=== PATIENT | male | born 1940 | race Caucasian/White ===

== ENCOUNTER → 2016-12-09 | Outpatient (CLI) | payer MEDICARE, BC | LOC: OD 08:56 | PROVIDERS: ATTEND Internal Medicine Cardiovascular Disease | DX: E03.9 Hypothyroidism, unspecified (principal) | CPT/HCPCS: 36415; 84443 ==

== ENCOUNTER 2019-09-06 16:54 | Observation (INO) | payer MEDICARE, BC ==
--- NOTE | 2019-09-06 17:05 | ER Document Report ---
ED General - General Chief Complaint: Chest Pain Stated Complaint: CHEST PAIN Time Seen by Provider: 09/06/19 17:04 Primary Care Provider: RANJAN PRICE MD [EMERITUS] - Follow up as needed Mode of Arrival: Ambulatory Information source: Patient TRAVEL OUTSIDE OF THE [place] IN LAST 30 DAYS: No - HPI Onset: Just prior to arrival - about 30 min prior to arrival Onset/Duration: Sudden Quality of pain: Pressure Severity: Moderate Pain Level: 3 Associated symptoms: None Exacerbated by: Denies Relieved by: Denies Similar symptoms previously: Yes - when he had a heart attack 40 years ago Recently seen / treated by doctor: No Notes: 79 year old male with history of a prior VT 40 years ago, HTN, HLD here in the ER for chest pain/pressure which started 30min prior to ER arrival. The patient says the pain radiates slightly into his left arm and left jaw. The patient says the pain started while watching TV. The patient denies nausea, vomiting, sweating, shortness of breath. The patient never had an intervention with his last VT which was 40 years ago. - Related Data Allergies/Adverse Reactions: No Known Allergies Allergy (Unverified 09/06/19 17:24) Past Medical History - General Information source: Patient - Social History Smoking Status: Former Smoker Frequency of alcohol use: Occasional Drug Abuse: None Lives with: Spouse/Significant other Family History: Reviewed & Not Pertinent - Past Medical History Cardiac Medical History: Reports: Hx Heart Attack, Hx Hypercholesterolemia, Hx Hypertension Review of Systems - Review of Systems Constitutional: No symptoms reported EENT: No symptoms reported Cardiovascular: Chest pain Respiratory: No symptoms reported Gastrointestinal: No symptoms reported Genitourinary: No symptoms reported Male Genitourinary: No symptoms reported Musculoskeletal: No symptoms reported Skin: No symptoms reported Hematologic/Lymphatic: No symptoms reported Neurological/Psychological: No symptoms reported -: Yes All other systems reviewed and negative Physical Exam - Vital signs Vitals: Temp Pulse Resp BP Pulse Ox 97.7 F 63 18 174/70 H 98 09/06/19 17:02 09/06/19 17:02 09/06/19 17:02 09/06/19 17:02 09/06/19 17:02 - Notes Notes: GENERAL: Well-appearing, well-nourished and in no acute distress. HEAD: Atraumatic, normocephalic. EYES: Pupils equal round and reactive to light, extraocular movements intact, sclera anicteric, conjunctiva are normal. ENT: External ears normal in appearance, nares patent, oropharynx clear without exudates. Moist mucous membranes. NECK: Normal range of motion, supple without lymphadenopathy or JVD. LUNGS: Breath sounds clear to auscultation bilaterally and equal. No wheezes rales or rhonchi. HEART: Regular rate and rhythm without murmurs, rubs or gallops. ABDOMEN: Soft, nontender, normoactive bowel sounds. No guarding, no rebound. No masses appreciated. EXTREMITIES: Normal range of motion, no pitting or edema. No clubbing or cyanosis. NEUROLOGICAL: Cranial nerves II through XII grossly intact. Normal speech, normal gait. PSYCH: Normal mood, normal affect. SKIN: Warm, Dry, normal turgor, no rashes or lesions noted. Course - Re-evaluation Re-evalutation: 09/06/19 18:30 The patient had chest pain which started about 30 min prior to ER arrival. The patient's chest pain nearly completely subsided in the ER. According to the patient's Fur Cleaner Dr. Price, the patient had a stress test in 2018 which showed some possible areas of reversible ischemia. Dr. Price would therefore like the patient to be admitted for OBs. The patient's EKG is unremarkable here in the ER an dhis first Trop is completely negative. Will admit patient for OBs and cycle Troponins. Patient was given ASA and Nitro in the ER. 09/06/19 19:03 Dr. Price would like the patient admitted for OBs. Don Day of the Hospitalist team recommended repeating a Trop and then discussing the case with Dr. Price after since there are no inpatient Stress Tests currently due to COVID 19. Patient signed out to oncoming ER doctor at shift change. - Vital Signs Vital signs: Temp Pulse Resp BP Pulse Ox 97.7 F 63 18 180/120 H 98 09/06/19 17:02 09/06/19 17:02 09/06/19 17:07 09/06/19 17:06 09/06/19 17:02 - Laboratory Result Diagrams: 09/06/19 17:10 09/06/19 17:10 - Diagnostic Test Radiology reviewed: Image reviewed, Reports reviewed - EKG Interpretation by Me EKG shows normal: Sinus rhythm, [place], Intervals, QRS Complexes, ST-T Waves Rate: Normal Rhythm: NSR Discharge - Discharge Clinical Impression: Chest pain Qualifiers: Chest pain type: unspecified Qualified Code(s): R07.9 - Chest pain, unspecified Condition: Stable Disposition: OTHER Referrals: RANJAN PRICE MD [EMERITUS] - Follow up as needed
[2019-09-06] MEDS ORDERED: ASPIRIN 81 MG TABLET, CHEWABLE PO ONE (17:11)
[2019-09-06] MEDS: NITROGLYCERIN 0.4 MG/TAB 25 TAB/BOTTLE SL PRN ×2 (17:19→17:37)
--- NOTE | 2019-09-06 17:26 | RADIOLOGY REPORT (SQ) ---
EXAM DESCRIPTION: CHEST 2 VIEWS IMAGES COMPLETED DATE/TIME: 09/06/2019 5:18 pm REASON FOR STUDY: chest pain COMPARISON: None. EXAM PARAMETERS: NUMBER OF VIEWS: two views TECHNIQUE: Digital Frontal and Lateral radiographic views of the chest acquired. RADIATION DOSE: NA LIMITATIONS: none FINDINGS: LUNGS AND PLEURA: No opacities, masses or pneumothorax. No pleural effusion. MEDIASTINUM AND HILAR STRUCTURES: No masses or contour abnormalities. HEART AND VASCULAR STRUCTURES: Heart normal size. No evidence for failure. BONES: No acute findings. HARDWARE: None in the chest. OTHER: No other significant finding. IMPRESSION: NO ACUTE RADIOGRAPHIC FINDING IN THE CHEST. TECHNICAL DOCUMENTATION: JOB ID: [id number] 2010 [employer]- All Rights Reserved Reading location - IP/workstation name: [email or web address]
--- NOTE | 2019-09-06 17:32 | EKG REPORT ---
SEVERITY:- ABNORMAL ECG - SINUS RHYTHM EARLY PRECORDIAL TRANSITION TO V1, CONSIDER OLD TRUE POST PR. : Confirmed by: Jasson Montanez MD 06-Sep-2019 17:31:28
[2019-09-06 17:33] LABS: ABSOLUTE BASOPHILS # (AUTO) 0.1 10^3/uL (0.0-0.2); ABSOLUTE EOSINOPHILS # (AUTO) 0.2 10^3/uL (0.0-0.6); ABSOLUTE LYMPHOCYTES (AUTO) 1.9 10^3/uL (0.5-4.7); ABSOLUTE MONOCYTES (AUTO) 0.6 10^3/uL (0.1-1.4); ABSOLUTE NEUT (AUTO) 3.9 10^3/uL (1.7-8.2); EOSINOPHILS % (AUTO) 3.4 % (0-6); HEMATOCRIT 45.5 % (37.9-51.0); HEMOGLOBIN 15.7 g/dL (13.5-17.0); LYMPHOCYTES % (AUTO) 28.6 % (13-45); MEAN CORPUSCULAR HEMOGLOBIN 33.2 pg (27.0-33.4); MEAN CORPUSCULAR HGB CONC 34.4 g/dL (32.0-36.0); MEAN CORPUSCULAR VOLUME 97 fl (80-97); PLATELET COUNT 212 10^3/uL (150-450); RED BLOOD COUNT 4.72 10^6/uL (4.35-5.55); RED CELL DISTRIBUTION WIDTH 13.2 % (11.5-14.0); TOTAL CELLS COUNTED % (AUTO) 100 %; WHITE BLOOD COUNT 6.7 10^3/uL (4.0-10.5)
[2019-09-06 17:41] LABS: ALBUMIN 4.5 g/dL (3.5-5.0); ALKALINE PHOSPHATASE 94 U/L (38-126); ANION GAP 7 (5-19); ASPARTATE AMINO TRANSFERASE 53 U/L (17-59); BILIRUBIN,TOTAL 0.7 mg/dL (0.2-1.3); BLOOD UREA NITROGEN 18 mg/dL (7-20); CALCIUM 9.4 mg/dL (8.4-10.2); CARBON DIOXIDE 29 mmol/L (22-30); CHLORIDE 104 mmol/L (98-107); GLUCOSE 108 mg/dL (75-110); POTASSIUM 4.2 mmol/L (3.6-5.0); TOTAL PROTEIN 7.4 g/dL (6.3-8.2)
[2019-09-07] MEDS ORDERED: ONDANSETRON HCL INJ/PF 4 MG/2 ML SDV IV PRN (00:24)
[2019-09-07] MEDS ORDERED: MAGNESIUM HYDROXIDE SUSP 30 ML UDCUP PO PRN (00:24)
[2019-09-07] MEDS ORDERED: MAG HYDROX/AL HYDROX/SIMETH SUSP 30 ML UDCUP PO PRN (00:24)
[2019-09-07] MEDS ORDERED: MORPHINE SULFATE 10 MG/ML INJ IV PRN ×3 (00:41)
[2019-09-07] MEDS ORDERED: NITROGLYCERIN 0.4 MG/TAB 25 TAB/BOTTLE SL PRN (00:41)
[2019-09-07] MEDS ORDERED: ACETAMINOPHEN 325 MG TABLET PO PRN (00:41)
--- NOTE | 2019-09-07 02:11 | PDOC H&P ---
History of Present Illness Admission Date/PCP: 09/07/19 00:32 AURA COLEMAN MD Patient complains of: Chest pain History of Present Illness: EMILIA MARIE JR is a 79 year old male who presented emergency room with a 30-minute history of acute chest pain. He admits the sudden onset, while at rest, of constant moderate left anterior chest/substernal chest pressure with radiation to the left shoulder and upper arm as well as the left jaw. He denies other associated or accompanying signs and symptoms. He admits a prior similar episode with a myocardial infarction 40 years ago. He has not identified any aggravating or ameliorating factors for his chest pain. In the emergency room he was found to have an EKG which showed no evidence of acute coronary ischemia or injury and serial cardiac enzymes remain in the normal range. His chest pain resolved after receiving sublingual nitroglycerin x2 in the ER. At the insistence of Dr. Montanez, his equipment driver he was admitted to observation status for a Cardiolite stress test to be performed by Dr. Mcclellan who has been called by myself and informed of the stress test and has also been consulted for further evaluation. Past Medical History Cardiac Medical History: Reports: Coronary Artery Disease, Myocardial Infarction, Hyperlipidema, Hypertension Denies: Atrial Fibrillation, Congestive Heart Failure, DVT, Pulmonary Embolism Pulmonary Medical History: Denies: Asthma, Chronic Obstructive Pulmonary Disease (COPD) EENT Medical History: Denies: Cataracts, Ears - Hearing aids Neurological Medical History: Denies: Hemorrhagic CVA, Ischemic CVA, Seizures Endocrine Medical History: Denies: Diabetes Mellitus Type 1, Diabetes Mellitus Type 2, Hyperthyroidism, Hypothyroidism Renal/ Medical History: Denies: Chronic Kidney Disease, Nephrolithiasis Malignancy Medical History: Reports: None GI Medical History: Denies: Cirrhosis, Crohn's Disease, Hepatitis, Peptic Ulcer Disease, Ulcerative Colitis Musculoskeltal Medical History: Denies: Arthritis, Fibromyalgia Skin Medical History: Denies: Eczema, Psoriasis Psychiatric Medical History: Denies: Alcohol Dependency, Substance Abuse, Tobacco Dependency Traumatic Medical History: Reports: None Hematology: Denies: Anemia, Bleeding Tendencies Infectious Medical History: Reports: None Past Surgical History Past Surgical History: Reports: Cholecystectomy Social History Information Source: Patient Lives with: Spouse/Significant other Smoking Status: Former Smoker Electronic Cigarette use?: No Frequency of Alcohol Use: None Hx Recreational Drug Use: No Drugs: None Hx Prescription Drug Abuse: No - Advance Directive Resuscitation Status: Full Code Surrogate healthcare decision maker:: Zo Marie Family History Family History: CAD, Malignancy. denies: DM Parental Family History Reviewed: Yes Children Family History Reviewed: No Sibling(s) Family History Reviewed.: Yes Medication/Allergy Home Medications: Atorvastatin Calcium [Lipitor 80 mg Tablet] 80 mg PO QHS 09/06/19 Ezetimibe 10 mg PO DAILY 09/06/19 Metoprolol Tartrate [Lopressor 50 mg Tablet] 75 mg PO Q12 09/06/19 Telmisartan 80 mg PO DAILY 09/06/19 Allergies/Adverse Reactions: No Known Allergies Allergy (Unverified 09/06/19 17:24) Review of Systems Constitutional: ABSENT: chills, fever(s) Eyes: ABSENT: visual disturbances, other - Eye pain Ears: ABSENT: hearing changes, other - Ear pain Nose, Mouth, and Throat: ABSENT: headache(s), sore throat Cardiovascular: PRESENT: chest pain. ABSENT: dyspnea on exertion, edema, orthropnea, palpitations Respiratory: ABSENT: cough, dyspnea Gastrointestinal: ABSENT: abdominal pain, constipation, diarrhea, nausea, vomiting Musculoskeletal: ABSENT: back pain, joint swelling Integumentary: ABSENT: pruritus, rash Neurological: ABSENT: confusion, convulsions, focal weakness, memory loss, syncope Psychiatric: ABSENT: anxiety, depression Endocrine: ABSENT: cold intolerance, heat intolerance, polydipsia, polyphagia, polyuria Hematologic/Lymphatic: ABSENT: easy bleeding, easy bruising Allergic/Immunologic: ABSENT: seasonal rhinorrhea Physical Exam Vital Signs: Temp Pulse Resp BP Pulse Ox 97.7 F 63 20 181/78 H 98 09/06/19 17:02 09/06/19 17:02 09/07/19 00:01 09/07/19 00:00 09/07/19 00:01 Intake & Output 09/05/19 09/06/19 09/07/19 23:59 23:59 23:59 Weight 90.718 kg General appearance: PRESENT: no acute distress, cooperative Head exam: PRESENT: atraumatic, normocephalic Eye exam: PRESENT: conjunctiva pink. ABSENT: conjunctival injection, scleral icterus Ear exam: PRESENT: normal external ear exam. ABSENT: bleeding, drainage Mouth exam: PRESENT: dry mucosa, neck supple Neck exam: ABSENT: thyromegaly, tracheal deviation Respiratory exam: PRESENT: clear to auscultation shalom, symmetrical, unlabored Cardiovascular exam: PRESENT: RRR. ABSENT: clicks, gallop, rubs Pulses: PRESENT: normal radial pulses, normal dorsalis pedis pul Vascular exam: PRESENT: normal capillary refill. ABSENT: pallor GI/Abdominal exam: PRESENT: normal bowel sounds, soft. ABSENT: tenderness Rectal exam: PRESENT: deferred Extremities exam: ABSENT: joint swelling, pedal edema Musculoskeletal exam: ABSENT: deformity, dislocation Neurological exam: PRESENT: alert, oriented to person, oriented to place, oriented to time, oriented to situation, CN II-XII grossly intact. ABSENT: motor sensory deficit Psychiatric exam: PRESENT: appropriate affect, normal mood Skin exam: PRESENT: dry, intact, warm. ABSENT: jaundice, rash, urticaria Results Laboratory Results: 09/06/19 17:10 09/06/19 17:10 09/06/19 09/06/19 17:10 17:10 WBC 6.7 RBC 4.72 Hgb 15.7 Hct 45.5 MCV 97 MCH 33.2 MCHC 34.4 RDW 13.2 Plt Count 212 Seg Neutrophils % 58.0 Sodium 139.7 Potassium 4.2 Chloride 104 Carbon Dioxide 29 Anion Gap 7 BUN 18 Creatinine 0.94 Est GFR ( Amer) > 60 Glucose 108 Calcium 9.4 Total Bilirubin 0.7 AST 53 Alkaline Phosphatase 94 Total Protein 7.4 Albumin 4.5 09/06/19 09/06/19 17:10 21:52 Troponin I < 0.012 0.024 Impressions: Chest X-Ray 09/06/19 17:05 IMPRESSION: NO ACUTE RADIOGRAPHIC FINDING IN THE CHEST. Assessment and Plan - Diagnosis (1) Chest pain Qualifiers: Chest pain type: unspecified Qualified Code(s): R07.9 - Chest pain, unspecified Is this a current diagnosis for this admission?: Yes (2) Coronary artery disease Qualifiers: Coronary Disease-Associated Artery/Lesion type: [place] artery [place] vs. transplanted heart: [place] heart Associated angina: with unspecified angina Qualified Code(s): I25.119 - Atherosclerotic heart disease of [place] coronary artery with unspecified angina pectoris Is this a current diagnosis for this admission?: Yes (3) Hyperlipidemia Qualifiers: Hyperlipidemia type: unspecified Qualified Code(s): E78.5 - Hyperlipidemia, unspecified Is this a current diagnosis for this admission?: Yes (4) Hypertension Qualifiers: Hypertension type: essential hypertension Qualified Code(s): I10 - Essential (primary) hypertension Is this a current diagnosis for this admission?: Yes - Plan Summary Summary: The patient is admitted on observation status to the telemetry floor. He will have a Cardiolite cardiac stress test performed later this morning. Dr. Mcclellan will be consulting on the patient and monitoring the stress test. He will use morphine sulfate 2 to 4 mg IV every 2 hours as needed for chest pain not controlled by nitroglycerin. He will receive Ativan 1 mg IV every 4 hours as needed anxiety or restlessness. Serial cardiac enzymes will be completed. Patient will have his breakfast diet per stress test protocol. Patient's usual medications will be restarted as soon as he has completed his stress test and his medication list has been verified and reconciled. - Time Time Spent with patient: 15-24 minutes Medications reviewed and adjusted accordingly: Yes Anticipated discharge: Home Within: within 24 hours - Inpatient Certification Based on my medical assessment, after consideration of the patient's comorbidities, presenting symptoms, or acuity I expect that the services needed warrant INPATIENT care.: No I certify that my determination is in accordance with my understanding of Medicare's requirements for reasonable and necessary INPATIENT services [42 CFR 412.3e].: No Medical Necessity: Risk of Complication if Not Cared For in Hospital
[2019-09-07] MEDS: HEPARIN SOD (PORCINE) 5,000 UNIT/ML 1 ML VIAL SUBCUT SCH ×2 (05:39→13:27)
[2019-09-07 05:45] LABS: CREATINE KINASE MB 1.43 ng/mL (<4.55); TROPONIN I 0.035 ng/mL
--- NOTE | 2019-09-07 07:16 | EKG REPORT ---
SEVERITY:- ABNORMAL ECG - SINUS RHYTHM MULTIPLE VENTRICULAR PREMATURE COMPLEXES TALL R WAVE IN V2, CONSIDER RVH OR PMI * OLD LATER[place] : Confirmed by: Jasson Montanez MD 07-Sep-2019 07:15:46
--- NOTE | 2019-09-07 09:44 | PDOC CONSULTATION ---
Consultation Consult Date: 09/07/19 Attending physician:: GAVI RAMIREZ Provider Consulted: BERNICE LACKEY Consult reason:: Chest pain, unstable angina History of Present Illness Admission Date/PCP: 09/07/19 00:32 AURA COLEMAN MD Patient complains of: Chest pain History of Present Illness: EMILIA MARIE JR is a 79 year old male who presented emergency room with a 30-minute history of acute chest pain. He admits the sudden onset, while at rest, of constant moderate left anterior chest/substernal chest pressure with radiation to the left shoulder and upper arm as well as the left jaw. He denies other associated or accompanying signs and symptoms. He admits a prior similar episode with a myocardial infarction 40 years ago. He has not identified any aggravating or ameliorating factors for his chest pain. In the emergency room he was found to have an EKG which showed no evidence of acute coronary ischemia or injury and serial cardiac enzymes remain in the normal range. His chest pain resolved after receiving sublingual nitroglycerin x2 in the ER. At the insistence of Dr. Montanez, his forest logistics manager he was admitted to observation status for a Cardiolite stress test to be performed by Dr. Mcclellan who has been called by myself and informed of the stress test and has also been consulted for further evaluation. This note by the hospitalist was reviewed. This morning I have been covering for Dr. Mcclellan who kindly asked me to see this patient on his behalf. This history obtained by the hospitalist was reviewed and confirmed by the patient. Since admission he has not had recurrence of chest pain. This morning his troponin I jumped just a little bit. Stress test, pharmacologic with Lexiscan was completed. During the Lexiscan infusion, patient did complain of chest pain but there were no associated EKG changes. Past Medical History Cardiac Medical History: Reports: Coronary Artery Disease, Myocardial Infarction, Hyperlipidema, Hypertension Denies: Atrial Fibrillation, Congestive Heart Failure, DVT, Pulmonary Embolism Pulmonary Medical History: Denies: Asthma, Chronic Obstructive Pulmonary Disease (COPD) EENT Medical History: Denies: Cataracts, Ears - Hearing aids Neurological Medical History: Denies: Hemorrhagic CVA, Ischemic CVA, Seizures Endocrine Medical History: Denies: Diabetes Mellitus Type 1, Diabetes Mellitus Type 2, Hyperthyroidism, Hypothyroidism Renal/ Medical History: Denies: Chronic Kidney Disease, Nephrolithiasis Malignancy Medical History: Reports: None GI Medical History: Denies: Cirrhosis, Crohn's Disease, Hepatitis, Peptic Ulcer Disease, Ulc erative Colitis Musculoskeltal Medical History: Denies: Arthritis, Fibromyalgia Skin Medical History: Denies: Eczema, Psoriasis Psychiatric Medical History: Denies: Alcohol Dependency, Substance Abuse, Tobacco Dependency Traumatic Medical History: Reports: None Hematology: Denies: Anemia, Bleeding Tendencies Infectious Medical History: Reports: None Past Surgical History Past Surgical History: Reports: None, Cholecystectomy Social History Information Source: Patient Lives with: Spouse/Significant other Smoking Status: Former Smoker Electronic Cigarette use?: No Frequency of Alcohol Use: None Hx Recreational Drug Use: No Drugs: None Hx Prescription Drug Abuse: No - Advance Directive Resuscitation Status: Full Code Family History Family History: CAD, Malignancy. denies: DM Parental Family History Reviewed: Yes Children Family History Reviewed: Yes Sibling(s) Family History Reviewed.: Yes Medication/Allergy Home Medications: Atorvastatin Calcium [Lipitor 80 mg Tablet] 80 mg PO QHS 09/06/19 Ezetimibe 10 mg PO DAILY 09/06/19 Metoprolol Tartrate [Lopressor 50 mg Tablet] 75 mg PO Q12 09/06/19 Telmisartan 80 mg PO DAILY 09/06/19 Aspirin [Ecotrin 81 mg EC Tablet] 81 mg PO DAILY 09/07/19 Diltiazem HCl [Diltiazem 24Hr ER] 240 mg PO DAILY 09/07/19 Allergies/Adverse Reactions: No Known Allergies Allergy (Unverified 09/06/19 17:24) Review of Systems Constitutional: ABSENT: chills, fever(s), headache(s), weight gain, weight loss Eyes: ABSENT: visual disturbances Ears: ABSENT: hearing changes Cardiovascular: PRESENT: chest pain, dyspnea on exertion. ABSENT: edema, orthropnea, palpitations Respiratory: ABSENT: cough, hemoptysis Gastrointestinal: ABSENT: abdominal pain, constipation, diarrhea, hematemesis, hematochezia, nausea, vomiting Genitourinary: ABSENT: dysuria, hematuria Musculoskeletal: ABSENT: joint swelling Integumentary: ABSENT: rash, wounds Neurological: ABSENT: abnormal gait, abnormal speech, confusion, dizziness, focal weakness, syncope Psychiatric: ABSENT: anxiety, depression, homidical ideation, suicidal ideation Endocrine: ABSENT: cold intolerance, heat intolerance, polydipsia, polyuria Hematologic/Lymphatic: ABSENT: easy bleeding, easy bruising Physical Exam Vital Signs: Temp Pulse Resp BP Pulse Ox 98.0 F 81 18 165/80 H 98 09/07/19 02:08 09/07/19 02:08 09/07/19 02:08 09/07/19 02:08 09/07/19 02:08 Intake & Output 09/06/19 09/07/19 09/08/19 06:59 06:59 06:59 Weight 76.1 kg General appearance: PRESENT: no acute distress, well-developed, well-nourished Head exam: PRESENT: atraumatic, normocephalic Eye exam: PRESENT: conjunctiva pink, EOMI, PERRLA. ABSENT: scleral icterus Ear exam: PRESENT: normal external ear exam Mouth exam: PRESENT: moist, tongue midline Neck exam: ABSENT: carotid bruit, JVD, lymphadenopathy, thyromegaly Respiratory exam: PRESENT: clear to auscultation shalom. ABSENT: rales, rhonchi, wheezes Cardiovascular exam: PRESENT: RRR, +S1, +S2, systolic murmur - 2/6 ejection systolic murmur aortic area. ABSENT: diastolic murmur, rubs Pulses: PRESENT: normal dorsalis pedis pul Vascular exam: PRESENT: normal capillary refill GI/Abdominal exam: PRESENT: normal bowel sounds, soft. ABSENT: distended, guarding, mass, organolmegaly, rebound, tenderness Rectal exam: PRESENT: deferred Extremities exam: PRESENT: full ROM. ABSENT: calf tenderness, clubbing, pedal edema Neurological exam: PRESENT: alert, awake, oriented to person, oriented to place, oriented to time, oriented to situation, CN II-XII grossly intact. ABSENT: motor sensory deficit Psychiatric exam: PRESENT: appropriate affect, normal mood. ABSENT: homicidal ideation, suicidal ideation Skin exam: PRESENT: dry, intact, warm. ABSENT: cyanosis, rash Results Laboratory Results: 09/06/19 17:10 09/06/19 17:10 09/06/19 09/06/19 09/06/19 17:10 17:10 21:52 WBC 6.7 RBC 4.72 Hgb 15.7 Hct 45.5 MCV 97 MCH 33.2 MCHC 34.4 RDW 13.2 Plt Count 212 Seg Neutrophils % 58.0 Sodium 139.7 Potassium 4.2 Chloride 104 Carbon Dioxide 29 Anion Gap 7 BUN 18 Creatinine 0.94 Est GFR ( Amer) > 60 Glucose 108 Calcium 9.4 Magnesium 2.4 H Total Bilirubin 0.7 AST 53 Alkaline Phosphatase 94 Total Protein 7.4 Albumin 4.5 09/06/19 09/06/19 09/07/19 17:10 21:52 04:01 Creatine Kinase 64 CK-MB (CK-2) Troponin I < 0.012 0.024 09/07/19 04:01 Creatine Kinase CK-MB (CK-2) 1.43 Troponin I 0.035 EKG Comments: Twelve-lead EKG x2 reviewed. Shows sinus rhythm, no acute ST-T wave changes are noted. Impressions: Chest X-Ray 09/06/19 17:05 IMPRESSION: NO ACUTE RADIOGRAPHIC FINDING IN THE CHEST. Assessment & Plan - Diagnosis (1) Chest pain Qualifiers: Chest pain type: unspecified Qualified Code(s): R07.9 - Chest pain, unspecified Is this a current diagnosis for this admission?: Yes (2) Coronary artery disease Qualifiers: Coronary Disease-Associated Artery/Lesion type: [place] artery [place] vs. transplanted heart: [place] heart Associated angina: with unspecified angina Qualified Code(s): I25.119 - Atherosclerotic heart disease of [place] coronary artery with unspecified angina pectoris Is this a current diagnosis for this admission?: Yes (3) Hyperlipidemia Qualifiers: Hyperlipidemia type: unspecified Qualified Code(s): E78.5 - Hyperlipidemia, unspecified Is this a current diagnosis for this admission?: Yes (4) Hypertension Qualifiers: Hypertension type: essential hypertension Qualified Code(s): I10 - Essential (primary) hypertension Is this a current diagnosis for this admission?: Yes (5) Unstable angina Is this a current diagnosis for this admission?: Yes - Notes Notes: Patient was admitted with chest pain. He describes a good history consistent with unstable angina. Patient had slight bump in his troponin I but no significant EKG change. Due to history of previous MO, his age and risk factor, there is high probability that he has underlying CAD and current presentation is of unstable angina. Currently patient has stabilized. However will optimize his medical management. Recommend start patient on dual antiplatelet therapy with Plavix and aspirin. Recommend continuing Plavix at 75 mg daily for at least a month. Loading dose orders given today. At this point, will recommend continuing aggressive medical management. Have added Lipitor 20 mg p.o. nightly. Added beta-jayme to the regimen. Continue ZANE inhibitor/ARB at home dose. Escalate beta-jayme as needed. Blood pressure goal should be 140/90 or less. I have ordered a 2D echo for risk stratification. Hyperlipidemia: Continue with statin therapy. Started patient on statin therapy, Lipitor 20 mg p.o. nightly. Hypertension: Blood pressure is noted to be elevated. Added beta-jayme. Resume home antihypertensives. Unstable angina: Currently stable. Should patient has significant recurrence of chest pain, significant bump in troponin I or significant ischemia on nuclear stress testing may consider transfer to care transfer for heart catheterization. - Time Time Spent: 50 to 70 Minutes - More than 50% of the time spent coordinating care, discussing management plans with involved caregivers. Management plans discussed with involved personnels. Medical decision making was of moderate to high complexity, patient's has multiple comorbidities. Medications reviewed and adjusted accordingly: Yes
[2019-09-07] MEDS ORDERED: FAMOTIDINE 20 MG TABLET PO SCH (10:00)
[2019-09-07] MEDS ORDERED: METOPROLOL SUCCINATE 25 MG TAB.SR.24H PO SCH (10:00)
[2019-09-07] MEDS ORDERED: CLOPIDOGREL BISULFATE 300 MG TABLET PO ONE (10:30)
[2019-09-07] MEDS ORDERED: AMINOPHYLLINE INJ/PF 250 MG/10 ML SDV IV ONE (11:18)
[2019-09-07] MEDS ORDERED: REGADENOSON INJ 0.4 MG/5 ML DISP.SYRIN IV ONE (11:18)
[2019-09-07 11:24] LABS: CHOLESTEROL 94.18 mg/dL (0-200); TRIGLYCERIDES 53 mg/dL (<150)
[2019-09-07 11:35] LABS: DIRECT LDL 51 mg/dL (<100)
--- NOTE | 2019-09-07 12:24 | PDOC DISCHARGE SUMMARY ---
Impression - Admit/DC Date/PCP Admission Date/Primary Care Provider: 09/07/19 00:32 AURA COLEMAN MD Discharge Date: 09/07/19 - Discharge Diagnosis (1) Coronary artery disease Is this a current diagnosis for this admission?: Yes (2) Hyperlipidemia Is this a current diagnosis for this admission?: Yes (3) Hypertension Is this a current diagnosis for this admission?: Yes (4) Stable angina Is this a current diagnosis for this admission?: Yes - Assessment Summary: The patient is admitted on observation status to the telemetry floor. He will have a Cardiolite cardiac stress test performed later this morning. Dr. Mcclellan will be consulting on the patient and monitoring the stress test. He will use morphine sulfate 2 to 4 mg IV every 2 hours as needed for chest pain not controlled by nitroglycerin. He will receive Ativan 1 mg IV every 4 hours as needed anxiety or restlessness. Serial cardiac enzymes will be completed. Patient will have his breakfast diet per stress test protocol. Patient's usual medications will be restarted as soon as he has completed his stress test and his medication list has been verified and reconciled. - Additional Information Resuscitation Status: Full Code Referrals: AURA COLEMAN MD [Primary Care Provider] - Prescriptions: Nitroglycerin [Nitrostat 0.4 mg (1/150 Gr) Tabs 25/Bottle] 1 tab SL Q5MP PRN #1 bottle PRN Reason: For Chest Pain Clopidogrel Bisulfate [Plavix 75 mg Tablet] 75 mg PO DAILY #30 tablet Home Medications: Atorvastatin Calcium [Lipitor 80 mg Tablet] 80 mg PO QHS 09/06/19 Ezetimibe 10 mg PO DAILY 09/06/19 Metoprolol Tartrate [Lopressor 50 mg Tablet] 75 mg PO Q12 09/06/19 Telmisartan 80 mg PO DAILY 09/06/19 Aspirin [Ecotrin 81 mg EC Tablet] 81 mg PO DAILY 09/07/19 Clopidogrel Bisulfate [Plavix 75 mg Tablet] 75 mg PO DAILY #30 tablet 09/07/19 Diltiazem HCl [Diltiazem 24Hr ER] 240 mg PO DAILY 09/07/19 Nitroglycerin [Nitrostat 0.4 mg (1/150 Gr) Tabs 25/Bottle] 1 tab SL Q5MP PRN #1 bottle 09/07/19 History of Present Illiness History of Present Illness: EMILIA MARIE JR is a 79 year old male who presented emergency room with a 30-minute history of acute chest pain. He admits the sudden onset, while at rest, of constant moderate left anterior chest/substernal chest pressure with radiation to the left shoulder and upper arm as well as the left jaw. He denies other associated or accompanying signs and symptoms. He admits a prior similar episode with a myocardial infarction 40 years ago. He has not identified any aggravating or ameliorating factors for his chest pain. In the emergency room he was found to have an EKG which showed no evidence of acute coronary ischemia or injury and serial cardiac enzymes remain in the normal range. His chest pain resolved after receiving sublingual nitroglycerin x2 in the ER. At the insistence of Dr. Montanez, his can filling and closing machine tender he was admitted to observation status for a Cardiolite stress test to be performed by Dr. Mcclellan who has been called by myself and informed of the stress test and has also been consulted for further evaluation. Hospital Course Hospital Course: The patient had an unremarkable hospital course. He does have a history of coronary artery disease. His stress test showed a fixed defect with localized ischemic changes adjacent. I reviewed the test with Dr. Frank. He suggested adding 75 mg of Plavix daily but continue the patient's current medications. The patient will follow-up with his can filling and closing machine tender tomorrow or first thing next week. He may likely require repeat cardiac catheterization. Dr. Frank did discuss monitoring the patient overnight. The patient chooses to return home. His has Parkinson's disease and he wants to get back to her as soon as possible. He will continue to check his pulse and blood pressure at home as well. Physical Exam Vital Signs: Temp Pulse Resp BP Pulse Ox 97.5 F 71 16 144/67 H 97 09/07/19 07:27 09/07/19 07:27 09/07/19 07:27 09/07/19 07:27 09/07/19 07:27 Intake & Output 09/06/19 09/07/19 09/08/19 06:59 06:59 06:59 Weight 76.1 kg General appearance: PRESENT: no acute distress, cooperative, well-developed Head exam: PRESENT: atraumatic, normocephalic Eye exam: PRESENT: conjunctiva pink. ABSENT: scleral icterus Ear exam: PRESENT: normal external ear exam. ABSENT: bleeding, drainage Mouth exam: PRESENT: moist, tongue midline Respiratory exam: PRESENT: clear to auscultation shalom, symmetrical, unlabored. ABSENT: rales, rhonchi, tachypnea, wheezes Cardiovascular exam: PRESENT: RRR, +S1, +S2, systolic murmur - 2/6 GI/Abdominal exam: PRESENT: normal bowel sounds, soft. ABSENT: distended, guarding, mass, tenderness Rectal exam: PRESENT: deferred Gentrourinary exam: ABSENT: indwelling catheter Extremities exam: ABSENT: pedal edema Musculoskeletal exam: PRESENT: ambulatory, normal inspection. ABSENT: deformity Neurological exam: PRESENT: alert, awake, oriented to person, oriented to place, oriented to time, oriented to situation, CN II-XII grossly intact. ABSENT: altered Psychiatric exam: PRESENT: appropriate affect, normal mood. ABSENT: agitated, anxious Focused psych exam: ABSENT: delusional, paranoid, restlessness Skin exam: PRESENT: dry, normal color, warm. ABSENT: rash Results Laboratory Results: WBC 6.7 10^3/uL (4.0-10.5) 09/06/19 17:10 RBC 4.72 10^6/uL (4.35-5.55) 09/06/19 17:10 Hgb 15.7 g/dL (13.5-17.0) 09/06/19 17:10 Hct 45.5 % (37.9-51.0) 09/06/19 17:10 MCV 97 fl (80-97) 09/06/19 17:10 MCH 33.2 pg (27.0-33.4) 09/06/19 17:10 MCHC 34.4 g/dL (32.0-36.0) 09/06/19 17:10 RDW 13.2 % (11.5-14.0) 09/06/19 17:10 Plt Count 212 10^3/uL (150-450) 09/06/19 17:10 Lymph % (Auto) 28.6 % (13-45) 09/06/19 17:10 [place] % (Auto) 9.0 % (3-13) 09/06/19 17:10 Eos % (Auto) 3.4 % (0-6) 09/06/19 17:10 Baso % (Auto) 1.0 % (0-2) 09/06/19 17:10 Absolute Neuts (auto) 3.9 10^3/uL (1.7-8.2) 09/06/19 17:10 Absolute Lymphs (auto) 1.9 10^3/uL (0.5-4.7) 09/06/19 17:10 Absolute Monos (auto) 0.6 10^3/uL (0.1-1.4) 09/06/19 17:10 Absolute Eos (auto) 0.2 10^3/uL (0.0-0.6) 09/06/19 17:10 Absolute Basos (auto) 0.1 10^3/uL (0.0-0.2) 09/06/19 17:10 Seg Neutrophils % 58.0 % (42-78) 09/06/19 17:10 Sodium 139.7 mmol/L (137-145) 09/06/19 17:10 Potassium 4.2 mmol/L (3.6-5.0) 09/06/19 17:10 Chloride 104 mmol/L (98-107) 09/06/19 17:10 Carbon Dioxide 29 mmol/L (22-30) 09/06/19 17:10 Anion Gap 7 (5-19) 09/06/19 17:10 BUN 18 mg/dL (7-20) 09/06/19 17:10 Creatinine 0.94 mg/dL (0.52-1.25) 09/06/19 17:10 Est GFR ( Amer) > 60 (>60) 09/06/19 17:10 Est GFR (MDRD) Non-Af > 60 (>60) 09/06/19 17:10 Glucose 108 mg/dL (75-110) 09/06/19 17:10 Calcium 9.4 mg/dL (8.4-10.2) 09/06/19 17:10 Magnesium 2.4 mg/dL (1.6-2.3) H 09/06/19 21:52 Total Bilirubin 0.7 mg/dL (0.2-1.3) 09/06/19 17:10 Direct Bilirubin 0.0 mg/dL (0.0-0.4) 09/06/19 17:10 Neonat Total Bilirubin Not Reportable 09/06/19 17:10 Neonat Direct Bilirubin Not Reportable 09/06/19 17:10 Neonat Indirect Bili Not Reportable 09/06/19 17:10 AST 53 U/L (17-59) 09/06/19 17:10 ALT 48 U/L (<50) 09/06/19 17:10 Alkaline Phosphatase 94 U/L (38-126) 09/06/19 17:10 Creatine Kinase 64 U/L (55-170) 09/07/19 04:01 CK-MB (CK-2) 1.43 ng/mL (<4.55) 09/07/19 04:01 Troponin I 0.035 ng/mL 09/07/19 04:01 Total Protein 7.4 g/dL (6.3-8.2) 09/06/19 17:10 Albumin 4.5 g/dL (3.5-5.0) 09/06/19 17:10 Triglycerides 53 mg/dL (<150) 09/07/19 04:01 Cholesterol 94.18 mg/dL (0-200) 09/07/19 04:01 LDL Cholesterol Direct 51 mg/dL (<100) 09/07/19 04:01 VLDL Cholesterol 11.0 mg/dL (10-31) 09/07/19 04:01 HDL Cholesterol 31 mg/dL (>40) L 09/07/19 04:01 09/06/19 09/06/19 09/07/19 17:10 21:52 04:01 CK-MB (CK-2) 1.43 Troponin I < 0.012 0.024 0.035 Impressions: Chest X-Ray 09/06/19 17:05 IMPRESSION: NO ACUTE RADIOGRAPHIC FINDING IN THE CHEST. Plan Health Concerns: Possible progressive coronary artery disease. Needs follow-up with his can filling and closing machine tender. Plavix 75 mg daily has been added per the consulting inpatient can filling and closing machine tender Dr. Frank. Plan of Treatment: Discharged home. An additional prescription for Plavix and sublingual nitroglycerin were provided and electronically sent to [facility] on [facility]. Goals: Further evaluation of coronary artery disease as an outpatient. Time Spent: Greater than 30 Minutes Stroke Is this a Stroke Patient?: No Acute Heart Failure - Is this a Heart Failure Patient?: No
[2019-09-07 12:25] VITALS: BP 150/69
--- NOTE | 2019-09-07 13:07 | DRAGON STRESS TEST REPORT ---
INTRAVENOUS LEXISCAN CARDIOLITE STRESS TEST USING SINGLE PHOTON EMMISION COMPUTERIZED TOMOGRAPHIC. DATE OF PROCEDURE: September 07, 2019. INDICATION : Chest pain, previous history of VT CARDIAC RISK FACTORS: CAD, hypertension, dyslipidemia RESTING EKG: Sinus rhythm, borderline abnormal Q waves in V5 and V6. STRESS EKG: No significant ST segment changes noted with LexiScan bolus REASON FOR TERMINATION: Protocol. PROCEDURE REPORT: Baseline heart rate 80 beats per minute with blood pressure of 135/64. Patient had no significant complaints. Patient was bolused with Lexiscan 0.4 mg intravenously followed by saline bolus. Heart rate at 2 minutes post bolus 106 with a blood pressure of 136/59. 3 minutes post bolus heart rate 101 with blood pressure of 123/49. No significant EKG changes were noted. Patient had no significant complaints during the procedure or postprocedure except for mild transient chest tightness following the Lexiscan bolus. CONCLUSIONS: Normal EKG and hemodynamic response to IV LexiScan. NUCLEAR DATA: At rest the patient was given 14.87 millicuries of technetium 99 sestamibi injected intravenously. As per protocol rest gated SPECT images were obtained. On day of stress test, the patient was given intravenous LexiScan at a dose of 0.4 mg in 5 mL intravenously, followed by flush with normal saline. Subsequently the stress dose of 41.2 millicuries of technetium 99 sestamibi was injected intravenously. As per protocol stress gated images were obtained. NUCLEAR INTERPRETATION: Both raw and processed data were used for interpretation. Visual, qualitative, computer-generated quantitative data was used. There was good myocardial uptake of technetium compound. Motion artifact and soft tissue attenuations were noted. Increased visceral uptake was noted. Moderate fixed defect noted involving the inferior and inferolateral wall of the left ventricle with small area of surrounding transient perfusion defect consistent with moderate scar with small area of surrounding ischemia. EKG gated imaging showed LV EF at 54 %, rest and stress gated EF similar visually. Mild hypokinesia noted involving the basal and mid inferolateral wall. T. I D. ratio was 1.10. Lung heart ratio noted to be within normal limits 0.33. No significant extracardiac and abnormal radiotracer activities were noted. RV free wall uptake was noted to be WNL. IMPRESSION: Also refer to comments under nuclear interpretation. Also test results needs to be interpreted in the context of pretest probability. 1. Moderate scar in the inferolateral area of the left ventricle with small area of surrounding ischemia. 2. EKG gated imaging shows left ventricular ejection fraction of approx. 54 %. Mild hypokinesia noted involving the basal and mid inferolateral wall. 3. Clinical correlation requested as worse disease could be missed. In approximately 10% of the cases Lexiscan may not cause adequate vasodilatory stress. RECOMMENDATIONS: Aggressive risk factor modification and medical management. Further evaluation may be needed if continued symptoms or other high risk indicators are noted on clinical evaluation. Close cardiology follow-up is also recommended. Clinical correlation with echocardiogram derived ejection fraction. Inability to exercise by itself can lead to increased cardiovascular event risks. Close cardiology follow-up is indicated. Dr. Freida Frank. MRCP Board certified in cardiology and sleep medicine. Board certified in nuclear cardiology, adult echocardiography. CC Dr. Jasson DAVIS
--- NOTE | 2019-09-07 13:13 | XCELERA REPORT ---
[address] [address] Transthoracic Echocardiogram Report Name: JOSELUISEMILIA POLK JR Age: 79 yrs Gender: Male : 1940 Patient Status: Inpatient Patient Location: [facility]^A Study Date: 09/07/2019 09:38 AM Height: 60 in Weight: 167 lb BSA: 1.7 m2 Reason For Study: chest pain Ordering Physician: HORTENSIA LACKEY Performed By: Rachana Nunez Interpretation Summary Interpretation Summary TRANS THORACIC ECHOCARDIOGRAM FINDINGS: LEFT VENTRICLE: LV Systolic function: LVEF is felt to be within normal limits. Best estimate is approximately LVEF is 60 %. LV Diastolic Function: Grade II diastolic dysfunction noted. Wall motion : Basal and mid inferolateral akinesia noted. Left ventricular chamber size : is within normal limit. Left ventricular wall thickness : is increased indicative of Mild LVH. INTERVENTRICULAR SEPTUM: no evidence of VSD noted. No asymmetric hypertrophy noted. RIGHT VENTRICLE: RV systolic function : is felt to be within normal limit. Right Ventricle Size : WNL LEFT ATRIUM size : mildly dilated. RIGHT ATRIUM size : is within normal limit. INTER ATRIAL SEPTUM : No definite atrial septal defect noted however a small PFO could be missed. AORTIC ROOT : seems to be within normal limits. Ascending aorta is not well visualized. INFERIOR VENA CAVA: was not well visualized. VALVES: MITRAL VALVE : Leaflets are mildly thickened. Mobility seems to be within normal limits. Mitral Regurgitation : Trace mitral regurgitation is noted. Mitral Stenosis: No mitral stenosis noted. Mitral valve prolapse : none noted. AORTIC VALVE: seems to be trileaflet with thickening but adequate excursion. Aortic stenosis : No aortic stenosis noted. Aortic regurgitation : No aortic incompetence noted. TRICUSPID VALVE : mobility and structures within normal limit. Tricuspid stenosis : no tricuspid stenosis noted. Tricuspid regurgitation : Trace to mild tricuspid regurgitation noted. Estimated RVSP : At upper limit of normal PULMONARY VALVE : was not well visualized but no significant abnormalities suspected. Pulmonary stenosis : no significant pulmonary stenosis noted. Pulmonary regurgitation : no significant pulmonary regurgitation noted. MASSES AND THROMBUS : No definite intracardiac thrombus or masses are noted. PERICARDIUM: No pericardial effusion was noted. IMPRESSION : 1. Normal LVEF. Basal and mid inferolateral wall akinesia noted. 2. Mild LVH noted. 3. Grade II Diastolic Dysfunction noted. 4. No significant valvular stenosis or regurgitation noted. MMode/2D Measurements & Calculations RVDd: 2.2 cm LVIDd: 3.7 cm FS: 36.1 % Ao root diam: 3.2 cm IVSd: 1.1 cm LVIDs: 2.4 cm EDV(Teich): Ao root area: LVPWd: 0.79 cm 59.4 ml ESV(Teich): 7.9 cm2 19.9 ml EF(Teich): 66.5 % EDV(MOD-sp4): SV(MOD-sp4): 42.3 ml 24.6 ml ESV(MOD-sp4): 17.6 ml EF(MOD-sp4): 58.3 % Doppler Measurements & Calculations MV E max shailesh: MV dec slope: Ao V2 max: LV V1 max P.2 cm/sec 120.7 cm/sec 4.3 mmHg MV A max shailesh: 318.9 cm/sec2 Ao max PG: LV V1 max: 124.5 cm/sec MV dec time: 5.8 mmHg 103.6 cm/sec MV E/A: 0.70 0.27 sec PA V2 max: PI end-d shailesh: TR max shailesh: 88.2 cm/sec 111.2 cm/sec 224.6 cm/sec PA max P.1 mmHg TR max P.2 mmHg : HORTENSIA LACKEY Shyamal
[2019-09-07] MEDS ORDERED: ATORVASTATIN CALCIUM 40 MG TABLET PO SCH (22:00)
[2019-09-07] MEDS ORDERED: ATORVASTATIN CALCIUM 20 MG TABLET PO SCH (22:00)
== END 2019-09-07 14:58 | disposition home or self-care (01) ==
LOC: ER 16:54 → EH 09-07 00:32 → 4N 09-07 02:04
PROVIDERS: ADMIT Emergency Medicine; ATTEND Hospitalist
DX: I25.118 Atherosclerotic heart disease of native coronary artery with other forms of angina pectoris (principal); E78.5 Hyperlipidemia, unspecified; I10 Essential (primary) hypertension; I25.2 Old myocardial infarction; Z79.82 Long term (current) use of aspirin; Z79.899 Other long term (current) drug therapy; Z87.891 Personal history of nicotine dependence; Z82.49 Family history of ischemic heart disease and other diseases of the circulatory system
CPT/HCPCS: 93005; 99285; 36415 ×2; 82553; 82550; 83735; 85025; 80053; 84484 ×2; 80061; 93306; 93017; 71046; 78452; 93010; G0378 ×2; A9500; A9270 ×5; J2785; J1644; J3490; J0280; Q9969